=== PATIENT | female | born 1975 | race Caucasian/White ===

== ENCOUNTER 2022-04-14 12:05 | Emergency (ER) | payer OTHER, SELFPAY ==
[2022-04-14 12:06] VITALS: BP 198/90; PULSE 70; RESP 16; TEMP 36.4; O2SAT 98; BMI 40.6
--- NOTE | 2022-04-14 12:23 | EDS_ITS ---
HPI History of Present Illness Chief Complaint: Lower Extremity Injury Detail of Chief Complaint: From urgent clinic to evaluate for DVT Informant: patient and spouse/S.O. Occured/Mechanism Comment: Redness, swelling and pain proximal anterior right leg Onset/Context/Timing Onset: Days (First noted Monday) Context: Sudden Onset Timing: Continuous Quality of Pain: Aching Location: Proximal anterior right leg Current Severity: Mild Maximum Severity: Moderate Worsened by: Palpation Relieved by: Nothing Associated Symptoms Associated Symptoms: Negative for Parasthesia, Weakness or Loss of Funtion Narrative Narrative: Patient is a 47-year-old woman with no symptom past medical history. She has no primary care physician. She is on no medication. She was sent from urgent clinic for evaluation of DVT. Patient denies chest pain or shortness of breath. Patient does report redness, swelling and pain proximal anterior right leg that was first noted on Monday. She states because of the swelling and pain she did not go to [facility]. She denies history of VTE. She has no risk factors for VTE. Tetanus Immunization: Unknown Prior similar symptoms: No Recent Illness/Hospitalization: No PFSH PFSH Medical History no medical history no medical history Home Medications NK 04/14/22 [History Last Taken Unknown] Allergy/AdvReac Type Severity Reaction Status Date / Time No Known Allergies Allergy Verified 04/14/22 12:16 Social History Smoking Status: Never smoker alcohol intake: never ROS ROS ED Constitutional Constitutional ED: Denies chills, fever(s), subjective, sweats or weight loss Cardiovascular Cardiovascular: Denies chest pain, palpitations, paroxysmal nocturnal dyspnea or racing heartbeat Respiratory/Chest Respiratory/Chest: Denies cough, dyspnea, dyspnea on exertion or paroxysmal no cturnal dyspnea Musculoskeletal Musculoskeletal: Reports other Details: Per HPI narrative ; Denies arthralgias, back pain, myalgias or neck pain Integumentary Reports rash; Denies Abrasions Hematologic/Lymphatic Hematologic/Lymphatic: Denies easy bleeding or easy bruising EXAM Physical Exam Const Vital Signs: 04/14/22 12:06 Temperature 97.5 F L Temperature Source Temporal Pulse Rate 70 Respiratory Rate 16 Blood Pressure 198/90 H Blood Pressure Mean 126 Pulse Ox 98 Oxygen Delivery Method Room Air Positive well nourished, well developed and obese Constitutional Narrative: Blood pressure is elevated. Patient states she is anxious. General Appearance ED: well developed and NAD Nutritional Appearance: obese HEENT Reports moist mucous membranes normocephalic and atraumatic Eyes PERRL Eyes Narrative: Extract muscle intact. There is no nystagmus. Neck full ROM and supple Resp normal respiratory effort Cardio regular rate and regular rhythm Extremity Extremity Narrative: Patient has superficial phlebitis. The anterior proximal right leg is slightly erythematous warm with palpable cord. There is also varicose veins noted. There is no pain along distribution of deep venous system. There is no leg vein distention. There is no asymmetry or discoloration of the right lower extremity. General Extremety ED: Negative for cyanosis or weight-bearing difficulty General Extremity: Negative for cyanosis or weight-bearing difficulty Neuro No oriented x3, No CN's II-XII intact bilaterally and No moves all extremities Psych Mood & Affect: anxious Skin no wounds Skin Narrative: Superficial thrombophlebitis anterior right leg. Lesions: no lesions MDM MDM MDM Narrative Medical decision making narrative: Since patient is out of a primary care physician she was referred to Dr. Viveros. She was instructed to follow-up to have her blood pressure rechecked. Patient has no symptoms with regards to her hypertension. Patient was informed that she does not have a DVT. She does not need a CAT scan or ultrasound. Patient was told she has superficial thrombophlebitis. Discharge Plan Triage Chief Complaint: Lower Extremity Injury ED Provider: Quinn Pandey Dx/Rx/DC Orders Clinical Impression: Superficial thrombophlebitis, High blood pressure Instructions: ED Hypertension, To Be Confirmed, ED Thrombophlebitis, Superficial Prescriptions: No Action NK Primary Care Provider: NOT,DEFINED Referrals: Dominga Viveros MD [Med Staff - Hospice Music Therapist] - 1-2 Weeks NOT,DEFINED [Primary Care Provider] - Activity Restrictions/Additional Instructions: 1. Take an aspirin a day for the next 7 to 10 days 2. Hot compresses to anterior right leg 2-3 times a day for the next several days. Disposition Disposition: Home, Self Care
--- NOTE | 2022-04-14 12:26 | ED.RN ---
PT STATES BP IS NOT NORMALLY HIGH UNLESS AT THE DOCTORS OR EMERGENCY ROOM. DR. TYRONE LOMBARDO.
[2022-04-14 12:30] VITALS: BP 179/108
[2022-04-14 12:43] VITALS: BP 166/106; RESP 18
== END 2022-04-14 12:47 | disposition home or self-care (01) ==
LOC: ED 12:34
PROVIDERS: Emergency Provider Emergency Medicine; Visit Provider Emergency Medicine
DX: I80.00 Phlebitis and thrombophlebitis of superficial vessels of unspecified lower extremity (principal); M79.604 Pain in right leg; M79.89 Other specified soft tissue disorders; I10 Essential (primary) hypertension; E66.9 Obesity, unspecified
CPT/HCPCS: 99282